=== PATIENT | male | born 1950 | race Two or more races ===

== ENCOUNTER 2018-11-13 23:27 | Emergency (ER) | payer MEDICARE ==
[~2018-11-13] VITALS: Ht 167.6 cm; Wt 71.4 kg
[2018-11-13] MEDS ORDERED: METF-960 PO (23:34)
[2018-11-13 23:49] LABS: GLUCOSE,POINT OF CARE 144 MG/DL (70-110)
[2018-11-14] MEDS ORDERED: LIDOCAINE 2% 5 ML JELLY TP ONE (01:15)
[2018-11-14] MEDS ORDERED: LIDOCAINE 1%/EPI 1:200,000/PF 10 ML VIAL INJ ONE (01:15)
[2018-11-14] MEDS ORDERED: BACITRACIN 0.9 GM PACKET OINTMENT TP ONE (02:15)
[2018-11-14 02:36] VITALS: BP 137/84
== END 2018-11-14 02:41 | disposition home or self-care (01) ==
LOC: EMS 23:28
DX: S01.112A Laceration without foreign body of left eyelid and periocular area, initial encounter (principal); E11.9 Type 2 diabetes mellitus without complications; Z79.84 Long term (current) use of oral hypoglycemic drugs; W22.8XXA Striking against or struck by other objects, initial encounter; Y93.89 Activity, other specified; Y92.89 Other specified places as the place of occurrence of the external cause; Y99.8 Other external cause status
CPT/HCPCS: 12013; 82962; 99283; J3490